=== PATIENT | female | born 1930 | race African-American/Black ===

== ENCOUNTER 2018-03-23 16:02 | Emergency (ER) | payer MEDICARE, MEDICAID, OTHER ==
[~2018-03-23] VITALS: Ht 162.6 cm; Wt 82.0 kg
[2018-03-23 17:00] LABS: BASOPHILS % 0.7 % (0.0-2.0); EOSINOPHILS % 2.6 % (0.0-5.0); HEMATOCRIT. 32.3 % (36.0-48.0); HEMOGLOBIN. 10.3 g/dL (12.0-16.0); LYMPHOCYTES % 11.4 % (20.0-50.0); MEAN CORPUSCULAR VOLUME 72.6 fL (81.0-99.0); MEAN PLATELET VOLUME 7.5 fl (7.4-10.4); MONOCYTES % 14.5 % (2.0-8.0); NEUTROPHILS % 70.8 % (40.0-76.0); PLATELET 381 x1000/uL (130-400); RED BLOOD CELL COUNT 4.46 mill/uL (4.2-5.4); RED CELL DISTRIBUTION WIDTH 23.1 % (11.6-14.6)
[2018-03-23 17:04] LABS: CHLORIDE 106 mEq/L (98-107)
[2018-03-23 17:09] LABS: PARTIAL THROMBOPLASTIN TIME 25.4 sec (23.4-31.0); PROTHROMBIN TIME 10.7 sec (9.4-11.6)
[2018-03-23 17:15] LABS: PLATELET ESTIMATE NORMAL
[2018-03-24 01:03] VITALS: BP 147/71
== END 2018-03-24 01:06 | disposition home or self-care (01) ==
LOC: ER 16:02
DX: S00.83XA Contusion of other part of head, initial encounter (principal); S60.222A Contusion of left hand, initial encounter; S80.02XA Contusion of left knee, initial encounter; S00.571A Other superficial bite of lip, initial encounter; H10.89 Other conjunctivitis; J98.11 Atelectasis; K08.9 Disorder of teeth and supporting structures, unspecified; I51.7 Cardiomegaly; I10 Essential (primary) hypertension; E78.00 Pure hypercholesterolemia, unspecified; Z95.1 Presence of aortocoronary bypass graft; Z87.891 Personal history of nicotine dependence; W18.39XA Other fall on same level, initial encounter; Y93.9 Activity, unspecified; Y92.9 Unspecified place or not applicable; Z96.652 Presence of left artificial knee joint
CPT/HCPCS: 36415; 70450; 70486; 71045; 72125; 73560; 80053; 85025; 85610; 85730; 93005; 99285

== ENCOUNTER 2018-12-15 19:07 | Inpatient (IN) | payer MEDICARE, MEDICAID ==
[~2018-12-15] VITALS: Ht 165.1 cm; Wt 82.1 kg
[2018-12-15] MEDS ORDERED: SODIUM CHLORIDE 0.9% 1,000 ML IV ONE (20:25)
[2018-12-15] MEDS ORDERED: ONDANSETRON HCL 4MG/2ML INJ IV STA (20:25)
[2018-12-15 20:55] LABS: CHLORIDE 109 mEq/L (98-107); HEMATOCRIT. 31.1 % (36.0-48.0); HEMOGLOBIN. 10.4 g/dL (12.0-16.0); MEAN CORPUSCULAR HEMOGLOBIN 30.9 pg (28.0-32.0); MEAN CORPUSCULAR VOLUME 92.5 fL (81.0-99.0); MEAN PLATELET VOLUME 8.1 fl (7.4-10.4); PLATELET 290 x1000/uL (130-400); RED BLOOD CELL COUNT 3.36 mill/uL (4.2-5.4); RED CELL DISTRIBUTION WIDTH 17.5 % (11.6-14.6)
[2018-12-15 20:57] LABS: INR 1.1; PROTHROMBIN TIME 10.6 sec (9.1-11.1)
[2018-12-15 21:55] LABS: PLATELET ESTIMATE NORMAL
[2018-12-16 00:10] LABS: CLARITY URINE CLEAR (CLEAR); COLOR URINE YELLOW (YELLOW); KETONES URINE NEGATIVE (NEGATIVE); LEUKOCYTE ESTERASE URINE NEGATIVE (NEGATIVE); NITRITE URINE NEGATIVE (NEGATIVE); OCCULT BLOOD URINE NEGATIVE (NEGATIVE); PROTEIN URINE NEGATIVE (NEGATIVE); SPECIFIC GRAVITY URINE 1.012 (1.005-1.030)
[2018-12-16] MEDS ORDERED: SODIUM CHLORIDE 0.9% 1000ML BAG (SEPSIS BOLUS) IV ONE (00:15)
[2018-12-16] MEDS ORDERED: CEFTRIAXONE 1 G PREMIX 50 ML IV ONE (00:15)
[2018-12-16 00:38] LABS: *AMPHETAMINES SCREEN URINE NEGATIVE (NEGATIVE); *BARBITURATES SCREEN URINE NEGATIVE (NEGATIVE)
[2018-12-16 00:39] LABS: *BENZODIAZEPINES SCREEN URINE NEGATIVE (NEGATIVE); *COCAINE SCREEN URINE NEGATIVE (NEGATIVE); CANNABINOID URINE SCREEN NEGATIVE (NEGATIVE); METHADONE URINE SCREEN NEGATIVE (NEGATIVE); PHENCYCLIDINE URINE SCREEN NEGATIVE (NEGATIVE)
[2018-12-16 01:03] LABS: OPIATES URINE SCREEN NEGATIVE (NEGATIVE)
[2018-12-16] MEDS ORDERED: CARV3.1242 MT (08:59)
[2018-12-16] MEDS ORDERED: AMLO10TA80 MT (08:59)
[2018-12-16] MEDS ORDERED: LISI40TA4 MT (09:00)
[2018-12-16] MEDS ORDERED: FURO40TA5 MT (09:00)
[2018-12-16] MEDS ORDERED: ASPI-1158 MT (09:01)
[2018-12-16] MEDS ORDERED: ATOR-2 MT (09:01)
[2018-12-16 09:37] VITALS: BP 107/56
[2018-12-16 09:59] VITALS: BP 107/56
[2018-12-16] MEDS ORDERED: ACETAMINOPHEN 325MG TABLET PO PRN (11:15)
[2018-12-16] MEDS ORDERED: NA PHOS,M-B/NA PHOS,DI-BA ENEMA 118ML PR PRN (11:15)
[2018-12-16] MEDS ORDERED: ACETAMINOPHEN 650MG SUPP PR PRN (11:15)
[2018-12-16] MEDS ORDERED: ONDANSETRON HCL 4MG/2ML INJ IV PRN (11:15)
[2018-12-16] MEDS ORDERED: LORAZEPAM 0.5MG TABLET PO PRN (11:15)
[2018-12-16] MEDS ORDERED: CLONIDINE 0.1MG TABLET PO PRN (11:15)
[2018-12-16] MEDS ORDERED: GUAIFENESIN 200MG/10ML SUGAR FREE UDC PO PRN (11:15)
[2018-12-16] MEDS ORDERED: DIPHENHYDRAMINE 50MG/ML VIAL IV PRN (11:15)
[2018-12-16] MEDS ORDERED: DOCUSATE SODIUM 100MG CAPSULE PO PRN (11:15)
[2018-12-16] MEDS ORDERED: MAGNESIUM/ALUMINUM HYDROXIDE/SIMETHICONE 30ML UDC PO PRN (11:15)
[2018-12-16] MEDS ORDERED: IPRATROPIUM/ALBUTEROL 0.5-3(2.5)MG/3ML NEB INH PRN (11:15)
[2018-12-16 12:31] VITALS: BP 122/55
[2018-12-16] MEDS: OMEPRAZOLE 20MG CAPSULE EXTENDED RELEASE PO SCH ×2 (16:53→17:20)
[2018-12-16] MEDS: SODIUM CHLORIDE 0.45% 1,000 ML IV SCH (16:55)
[2018-12-16 16:56] VITALS: BP 133/59
[2018-12-16 19:30] LABS: HEMATOCRIT 24.1 % (36.0-48.0); HEMOGLOBIN 7.9 g/dL (12.0-16.0); MEAN CORPUSCULAR HEMOGLOBIN 30.2 pg (28.0-32.0); MEAN CORPUSCULAR VOLUME 92.3 fL (81.0-99.0); PLATELET 256 x1000/uL (130-400); RED BLOOD CELL COUNT 2.61 mill/uL (4.2-5.4); RED CELL DISTRIBUTION WIDTH 17.2 % (11.6-14.6)
[2018-12-16 20:00] VITALS: BP 119/54
[2018-12-17] VITALS (17 sets, daily range): BP systolic 99–149; BP diastolic 50–83
[2018-12-17 06:47] LABS: HEMATOCRIT. 22.8 % (36.0-48.0); HEMOGLOBIN. 7.6 g/dL (12.0-16.0); MEAN CORPUSCULAR VOLUME 93.4 fL (81.0-99.0); MEAN PLATELET VOLUME 8.1 fl (7.4-10.4); PLATELET 221 x1000/uL (130-400); RED BLOOD CELL COUNT 2.44 mill/uL (4.2-5.4); RED CELL DISTRIBUTION WIDTH 17.3 % (11.6-14.6)
[2018-12-17] MEDS: OMEPRAZOLE 20MG CAPSULE EXTENDED RELEASE PO SCH (07:07)
[2018-12-17] MEDS: SODIUM CHLORIDE 0.45% 1,000 ML IV SCH (07:07)
[2018-12-17 07:25] LABS: CHLORIDE 114 mEq/L (98-107)
[2018-12-17 07:45] LABS: LDL CHOLESTEROL 35 mg/dL (5-100)
[2018-12-17 07:47] LABS: HDL CHOLESTEROL 38 mg/dL (40-59); T4 FREE 1.41 ng/dL (0.76-1.46)
[2018-12-17 11:01] LABS: PLATELET ESTIMATE NORMAL
[2018-12-17 15:07] LABS: HEMATOCRIT. 22.4 % (36.0-48.0); HEMOGLOBIN. 7.3 g/dL (12.0-16.0); MEAN CORPUSCULAR HEMOGLOBIN 30.5 pg (28.0-32.0); MEAN CORPUSCULAR VOLUME 93.6 fL (81.0-99.0); MEAN PLATELET VOLUME 7.8 fl (7.4-10.4); PLATELET 219 x1000/uL (130-400); RED BLOOD CELL COUNT 2.39 mill/uL (4.2-5.4); RED CELL DISTRIBUTION WIDTH 17.8 % (11.6-14.6)
[2018-12-17] MEDS: PANTOPRAZOLE SODIUM 40 MG/VIAL IV SCH ×2 (15:35→21:24)
[2018-12-17 16:08] LABS: PLATELET ESTIMATE NORMAL
[2018-12-18] VITALS (34 sets, daily range): BP systolic 90–162; BP diastolic 47–80
[2018-12-18] MEDS: SODIUM CHLORIDE 0.45% 1,000 ML IV SCH ×2 (01:48→22:50)
[2018-12-18 07:37] LABS: HEMATOCRIT 22.4 % (36.0-48.0); HEMOGLOBIN 7.5 g/dL (12.0-16.0)
[2018-12-18] MEDS: PANTOPRAZOLE SODIUM 40 MG/VIAL IV SCH ×2 (10:15→22:34)
[2018-12-18 22:08] LABS: HEMATOCRIT 29.4 % (36.0-48.0); HEMOGLOBIN 9.7 g/dL (12.0-16.0)
[2018-12-19] VITALS (28 sets, daily range): BP systolic 46–148; BP diastolic 31–104
[2018-12-19] MEDS: PANTOPRAZOLE SODIUM 40 MG/VIAL IV SCH ×2 (09:22→20:15)
[2018-12-19] MEDS: SODIUM CHLORIDE 0.45% 1,000 ML IV SCH ×2 (10:40→20:34)
[2018-12-19] MEDS: HYDROCODONE/ACETAMINOPHEN 5/325MG TABLET PO PRN (12:27)
[2018-12-19 16:43] LABS: HEMOGLOBIN. 9.1 g/dL (12.0-16.0); MEAN CORPUSCULAR HEMOGLOBIN 28.8 pg (28.0-32.0); MEAN CORPUSCULAR VOLUME 85.2 fL (81.0-99.0); MEAN PLATELET VOLUME 8.2 fl (7.4-10.4); PLATELET 152 x1000/uL (130-400); RED BLOOD CELL COUNT 3.17 mill/uL (4.2-5.4); RED CELL DISTRIBUTION WIDTH 19.4 % (11.6-14.6)
[2018-12-19 16:54] LABS: CHLORIDE 116 mEq/L (98-107)
[2018-12-19 19:00] LABS: NUCLEATED RED BLOOD CELLS 2 /100 WBC; PLATELET ESTIMATE NORMAL
[2018-12-20] VITALS (13 sets, daily range): BP systolic 106–137; BP diastolic 46–86
[2018-12-20] MEDS: HYDROCODONE/ACETAMINOPHEN 5/325MG TABLET PO PRN ×2 (03:48→12:32)
[2018-12-20] MEDS: PANTOPRAZOLE SODIUM 40 MG/VIAL IV SCH ×2 (08:55→22:05)
[2018-12-20] MEDS: SODIUM CHLORIDE 0.45% 1,000 ML IV SCH (22:05)
[2018-12-20 22:54] LABS: HEMATOCRIT. 31.5 % (36.0-48.0); HEMOGLOBIN. 10.4 g/dL (12.0-16.0); MEAN CORPUSCULAR HEMOGLOBIN 28.4 pg (28.0-32.0); MEAN CORPUSCULAR VOLUME 86.3 fL (81.0-99.0); MEAN PLATELET VOLUME 7.8 fl (7.4-10.4); PLATELET 224 x1000/uL (130-400); RED BLOOD CELL COUNT 3.65 mill/uL (4.2-5.4); RED CELL DISTRIBUTION WIDTH 19.2 % (11.6-14.6)
[2018-12-20 23:11] LABS: PLATELET ESTIMATE NORMAL
[2018-12-21] VITALS (12 sets, daily range): BP systolic 83–162; BP diastolic 48–83
[2018-12-21 06:08] LABS: HEMATOCRIT. 28.6 % (36.0-48.0); HEMOGLOBIN. 9.3 g/dL (12.0-16.0); MEAN CORPUSCULAR VOLUME 86.2 fL (81.0-99.0); MEAN PLATELET VOLUME 7.9 fl (7.4-10.4); PLATELET 237 x1000/uL (130-400); RED BLOOD CELL COUNT 3.32 mill/uL (4.2-5.4); RED CELL DISTRIBUTION WIDTH 18.7 % (11.6-14.6)
[2018-12-21 07:30] LABS: CHLORIDE 110 mEq/L (98-107)
[2018-12-21] MEDS: PANTOPRAZOLE SODIUM 40 MG/VIAL IV SCH ×2 (08:51→21:27)
[2018-12-21] MEDS: SODIUM CHLORIDE 0.45% 1,000 ML IV SCH (12:49)
[2018-12-21 22:39] LABS: PLATELET ESTIMATE NORMAL
[2018-12-22] VITALS (13 sets, daily range): BP systolic 98–138; BP diastolic 53–85
[2018-12-22] MEDS: SODIUM CHLORIDE 0.45% 1,000 ML IV SCH (04:13)
[2018-12-22 06:27] LABS: HEMATOCRIT 24.7 % (36.0-48.0); HEMOGLOBIN 8.3 g/dL (12.0-16.0); MEAN CORPUSCULAR VOLUME 85.8 fL (81.0-99.0); PLATELET 217 x1000/uL (130-400); RED BLOOD CELL COUNT 2.88 mill/uL (4.2-5.4); RED CELL DISTRIBUTION WIDTH 18.3 % (11.6-14.6)
[2018-12-22 06:56] LABS: CHLORIDE 112 mEq/L (98-107)
[2018-12-22] MEDS: PANTOPRAZOLE SODIUM 40 MG/VIAL IV SCH ×2 (09:48→20:53)
== END 2018-12-22 21:20 | DRG 378 ==
LOC: ER 19:07 → 6WST 12-16 02:11 → EDBEDREQ 12-16 02:42 → EDBEDREQTM 12-16 02:42 → EDBEDREQDT 12-16 02:42 → ENRESERV 12-16 04:40 → 5EST 12-17 17:26
PROVIDERS: ADMIT Internal Medicine; ATTEND Internal Medicine
PROC: 30233N1 Transfusion of Nonautologous Red Blood Cells into Peripheral Vein, Percutaneous Approach (ICD-10-PCS; principal; 2018-12-17)
DX: K57.31 Diverticulosis of large intestine without perforation or abscess with bleeding (principal); N17.9 Acute kidney failure, unspecified; E46 Unspecified protein-calorie malnutrition; E87.2 Acidosis; E86.0 Dehydration; F03.90 Unspecified dementia, unspecified severity, without behavioral disturbance, psychotic disturbance, mood disturbance, and anxiety; I11.9 Hypertensive heart disease without heart failure; K80.20 Calculus of gallbladder without cholecystitis without obstruction; D64.9 Anemia, unspecified; M51.86 Other intervertebral disc disorders, lumbar region; N93.9 Abnormal uterine and vaginal bleeding, unspecified; Z96.659 Presence of unspecified artificial knee joint; Z95.1 Presence of aortocoronary bypass graft; Z68.30 Body mass index [BMI] 30.0-30.9, adult; Z86.73 Personal history of transient ischemic attack (TIA), and cerebral infarction without residual deficits; Z88.8 Allergy status to other drugs, medicaments and biological substances; Z90.710 Acquired absence of both cervix and uterus; Z95.5 Presence of coronary angioplasty implant and graft; Z95.828 Presence of other vascular implants and grafts; I25.2 Old myocardial infarction
CPT/HCPCS: 36415; 71045; 72110; 74176; 76830; 76856; 78278; 80048; 80061; 80305; 82270; 83540; 83550; 83605; 83735; 84439; 84443; 84484; 85014; 85018; 85027; 86304; 86850; 86900; 86920; 93005; 93923; 93970; 96365; 96375; 99285; A9560; C9113; J1200; J2405; J7030; J7050; P9016